=== PATIENT | male | born 1995 | race Two or more races ===

== ENCOUNTER 2023-06-06 19:59 | Emergency (ER) | payer OTHER ==
[~2023-06-06] VITALS: Ht 172.7 cm; Wt 71.7 kg
[2023-06-06] MEDS ORDERED: AUGMENTIN125 MG/5 M (20:45)
[2023-06-06] MEDS ORDERED: PANTOPRAZOLE SO20 MG PO (20:45)
[2023-06-06] MEDS ORDERED: HYDROXYZIN10 MG/5 ML (20:46)
[2023-06-07] MEDS ORDERED: CEFTRIAXONE SODIUM 1,000 MG VIAL IM ONE (02:15)
[2023-06-07] MEDS ORDERED: TETANUS & DIPHTHERIA TOX,ADULT 0.5 ML VIAL IM ONE (02:15)
== END 2023-06-07 02:29 | disposition home or self-care (01) ==
LOC: ER 19:59
DX: S01.81XA Laceration without foreign body of other part of head, initial encounter (principal); W18.39XA Other fall on same level, initial encounter; Y93.89 Activity, other specified; Y92.89 Other specified places as the place of occurrence of the external cause; Y99.9 Unspecified external cause status

== ENCOUNTER 2023-06-11 09:08 | Emergency (ER) | payer OTHER ==
[~2023-06-11] VITALS: Ht 172.7 cm; Wt 70.3 kg
[~2023-06-11 09:08] MED LIST: AUGMENTIN125 MG/5 M; HYDROXYZIN10 MG/5 ML; PANTOPRAZOLE SO20 MG PO
== END 2023-06-11 10:04 | disposition home or self-care (01) ==
LOC: ER 09:08
DX: Z48.02 Encounter for removal of sutures (principal)

== ENCOUNTER 2023-08-18 17:26 | Emergency (ER) | payer OTHER ==
[~2023-08-18] VITALS: Ht 172.7 cm; Wt 68.0 kg
[2023-08-18] MEDS ORDERED: KETOROLAC TROMETHAMINE 30 MG VIAL IM STA (18:57)
[2023-08-18] MEDS ORDERED: IBU600 MG PO (19:02)
[2023-08-18] MEDS ORDERED: KETOROLAC TROMETHAMINE 30 MG VIAL ONE (19:46)
== END 2023-08-18 20:49 | disposition home or self-care (01) ==
LOC: ER 17:27
DX: S00.81XA Abrasion of other part of head, initial encounter (principal); W16.42XA Fall into unspecified water causing other injury, initial encounter; Y93.89 Activity, other specified; Y92.832 Beach as the place of occurrence of the external cause
CPT/HCPCS: 96372; 99282; J1885